=== PATIENT | female | born 1985 | race Caucasian/White ===

== ENCOUNTER 2020-02-19 22:05 | Emergency (ER) | payer MEDICAID, SELFPAY ==
[2020-02-19 22:15] VITALS: BP 140/78; PULSE 95; RESP 16; TEMP 36.8; O2SAT 100; BMI 42.9
--- NOTE | 2020-02-19 22:20 | XR_ITS ---
PROCEDURE: XR FOOT RT MIN 3V CLINICAL INDICATION: can fell on foot Posttraumatic pain COMPARISON: No exams were available for comparison FINDINGS: No fracture or dislocation. No lytic or blastic change. There is normal mineralization. The joint spaces are well-preserved. No significant degenerative/arthritic changes. No erosive changes evident. Other findings:None. IMPRESSION: No acute findings. Dictated by: Reinaldo Rogers MD 02/20/2020 06:47 Reinaldo Rogers MD in [place] 02/20/2020 06:47
[2020-02-19 22:30] VITALS: BP 133/79; PULSE 95; RESP 17; O2SAT 98
[2020-02-19 23:00] VITALS: BP 129/78; PULSE 91; RESP 17; O2SAT 98
--- NOTE | 2020-02-19 23:20 | [facility].EDLOEX ---
ED Disposition Clinical Impression: Right foot injury Qualifiers: Encounter type: initial encounter Qualified Code(s): S99.921A - Unspecified injury of right foot, initial encounter Disposition: Home, Self-Care Condition on Discharge: Good Instructions: DI for Foot Pain Additional Instructions: ice and see pcp for follow and podiatry Referrals: Cam Elizalde [Primary Care Provider] - Elvira Heart DPM [Staff Physician] - - Critical Care Critical Care Time: No Attestation: On 02/19/20, the high probability of a clinically significant, sudden or life threatening deterioration of the following system(s) required my full and direct attention, intervention and personal management. The time I documented below is in addition to time spent performing reported procedures but includes the following listed in this critical care notation. Medical Decision Making - Medical Records Medical records reviewed: Yes: I reviewed the patient's medical records. - [place] Inquiry Pt receiving controlled substance: No Vital Signs: 02/19/20 22:15 02/19/20 22:30 02/19/20 23:00 Temperature 98.3 F Temperature Source Oral Pulse Rate [Right] 95 H 95 H 91 H Respiratory Rate 16 17 17 Blood Pressure [Right Arm] 140/78 133/79 129/78 Blood Pressure Mean [Right Arm] 98 97 95 Blood Pressure Source [Right Arm] Automatic Cuff Automatic Cuff Automatic Cuff Blood Pressure Position [Right Arm] Sitting Supine Supine 02 Sat by Pulse Oximetry 100 98 98 Oxygen Delivery Method Room Air Room Air Room Air Orders (Tests/Meds): ED MEDICATIONS Discontinued Medications Generic Name Dose Route Start Last Admin Trade Name Freq PRN Reason Stop Dose Admin Ketorolac Tromethamine 60 mg 02/19/20 22:21 02/19/20 22:25 Ketorolac 60mg/2ml Vial IM 02/19/20 22:22 60 mg ONCE ONE Administration ORDERS Category Date Time Status XR foot RT min 3V Stat Exams 02/19/20 22:20 Taken - Radiology Data #1 Image(s): Foot/Toes Image Reviewed: Yes I reviewed the patient's radiology image Preliminary Findings: No Fracture Seen Lower Extremity Injury HPI - General Chief Complaint: Extremity Injury, Lower Stated Complaint: ao 02/180 injured L foot Time Seen by Provider: 02/19/20 23:00 Mode of Arrival: Wheelchair Source of Information: Patient, Medical Record Limitations: No Limitations Description of Symptoms (Recalled from ER Triage Doc. by RN): pt states she dropped a can of beans on her right foot. pt is having 8/10 pain. - History of Present Illness HPI Narrative: acute injury rt foot - dropped can complaint: foot injury Onset (ago): hour(s) Injury: Right: foot Type of Injury: blunt Place: home Severity: moderate Context: direct blow Associated symptoms: able to partially bear weight Other symptoms: none - Related Data Allergies Allergy/AdvReac Type Severity Reaction Status Date / Time No Known Allergies Allergy Verified 02/19/20 22:20 [facility] History - Hepatitis A Screen Drug use history?: No High risk sexual behaviors?: No History of sexually transmitted infection?: No Currently employed?: No Childcare worker?: No Do you have indoor plumbing?: Yes Do you have electricity?: Yes Attestation statement:: This patient has been screened for Hepatitis A risk factors. I have reviewed the patient's past medical history: Yes - Social History Smoking Status: Current some day smoker # Packs/Day (cigarettes): 0 Alcohol Intake: never Occupational Status: employed ROS Obtained: Yes All systems reviewed & no additional complaints - Musculoskeletal Musculoskeletal: Reports as per HPI, Reports joint pain, Reports joint swelling, Reports limited range of motion Physical Exam - General General appearance: alert - Head Head exam: normocephalic - Eye Eye exam: Present: PERRL, EOMI - ENT ENT exam: Present: mucous membranes moist - Neck Neck exam: Present: trachea midline - Respiratory Resp
[2020-02-19 23:32] VITALS: BP 146/86; PULSE 88; RESP 16; TEMP 36.7; O2SAT 98
== END 2020-02-19 23:38 | disposition home or self-care (01) ==
PROVIDERS: Emergency Provider Emergency Medicine; PCP Family Medicine
DX: S99.921A Unspecified injury of right foot, initial encounter (principal); W20.8XXA Other cause of strike by thrown, projected or falling object, initial encounter; Y92.010 Kitchen of single-family (private) house as the place of occurrence of the external cause; F17.210 Nicotine dependence, cigarettes, uncomplicated
CPT/HCPCS: 73630; 99282